=== PATIENT | male | born 1975 | race Caucasian/White ===

== ENCOUNTER 2020-09-21 16:20 | Emergency (ER) | payer MEDICAID, OTHER ==
[~2020-09-21] VITALS: Ht 175.3 cm; Wt 71.7 kg
[2020-09-21 16:42] VITALS: BP 122/69
--- NOTE | 2020-09-21 16:52 | NUR ---
PT AMBULATED TO BED 9.
[2020-09-21] MEDS ORDERED: LIDOCAINE/EPI 1% 1:100000 20 ML VIAL INJ ONE (17:00)
[2020-09-21] MEDS ORDERED: NACL 0.9% 1,000 ML IV ONE (17:00)
[2020-09-21] MEDS ORDERED: KETOROLAC 30 MG/ML VIAL IVP ONE (17:00)
--- NOTE | 2020-09-21 17:29 | NUR ---
LABS DRAWN, CONSENT CT OBTAINED
--- NOTE | 2020-09-21 17:36 | NUR ---
PT STATES HE HAS AN ALLERGY TO A STERIOD BUT UNSURE OF THE MEDICATION. IN TRAIGE, SHE OBTAINED THAT PT HAD AN ALLERGY TO ASPIRIN. PT WAS GIVEN TORODOL, PT DENIES SOB, HIVES, CHEST PAIN OR ANY SIGNS OF AN ALLERGIC REACTION.
[2020-09-21 17:38] LABS: BASOPHILS % (AUTO) 0.6 % (0.0-2.0); EOSINOPHILS # (AUTO) 0.3 K/uL (0-0.4); EOSINOPHILS % (AUTO) 5.9 % (0.0-4.0); HEMATOCRIT 42.9 % (36-52); HEMOGLOBIN 14.6 g/dL (12.0-18.0); LYMPHOCYTES % (AUTO) 38.4 % (20.5-51.1); MEAN CORPUSCULAR HEMOGLOBIN 32 pg (27-31); MEAN CORPUSCULAR HGB CONC 34 g/dL (33-37); MEAN CORPUSCULAR VOLUME 94.5 fL (80-94); MONOCYTES # (AUTO) 0.6 K/uL (0.8-1.0); NEUTROPHILS # (AUTO) 2.2 K/uL (1.8-7.7); NEUTROPHILS % (AUTO) 43.1 % (42.2-75.2); PLATELET COUNT (AUTO) 324 K/uL (140-450); RED BLOOD CELL COUNT(AUTO) 4.54 MIL/uL (4.20-6.10); RED CELL DISTRIBUTION WIDTH 13.1 % (11.6-13.7); WHITE BLOOD COUNT (AUTO) 5.1 K/uL (4.8-10.8)
[2020-09-21 17:53] LABS: ALBUMIN 3.7 g/dL (3.4-5.0); ANION GAP 10.7 (8-16); CARBON DIOXIDE 29.1 mmol/L (21-32); POTASSIUM 3.8 mmol/L (3.5-5.1); TOTAL BILIRUBIN 0.3 mg/dL (0.0-1.0)
--- NOTE | 2020-09-21 17:53 | NUR ---
45 Y/O M BIB SELF FROM HOME, PATIENT PRESENTS TO ED WITH BACK PAIN THAT STARTED IN NOVEMBER 2019 FROM A PREVIOUS FALL. PT HAS BEEN GETTING SHOTS IN HIS SPINE FOR PAIN RELIEF, ON 09/12/20 PT HAD PAIN SHOT, 09/15/20 PT SAW HE HAD SWELLING AND REDNESS. AREA ON LOWER BACK IS REDDENED, EDEMA PRESENT, AND WOUND IS OPEN, NO DISCHARGE. ALLERGY: ASPIRIN, ERYTHROMYCIN MED: CEPHALEXIN AND NORCO
--- NOTE | 2020-09-21 19:10 | NUR ---
Report received from ANISH Dover for continuation of care.
--- NOTE | 2020-09-21 19:16 | NUR ---
Pt sitting up in bed, locked and in lowest position, HOB elevated, side rail x1. VSS. No acute distress noted.
--- NOTE | 2020-09-21 19:20 | NUR ---
I&D kit placed at bedside for ERMD administration.
[2020-09-21 20:14] VITALS: BP 125/72
[2020-09-21] MEDS ORDERED: NAPR-54 PO (21:06)
[2020-09-21] MEDS ORDERED: SULF-59 PO (21:06)
--- NOTE | 2020-09-21 21:24 | NUR ---
COVERED PT'S WOUND WITH 6X6 BANDAGE AND PROVIDED WOUND CARE INSTRUCTIONS.
--- NOTE | 2020-09-21 21:25 | NUR ---
IV removed, catheter intact and site benign. Applied folded 4x4 gauze and tape to stop bleeding.
--- NOTE | 2020-09-21 21:28 | NUR ---
Patient discharged with v/s stable. Written and verbal after care instructions given and explained. Patient alert, oriented and verbalized understanding of instructions. Ambulatory with steady gait. All questions addressed prior to discharge. ID band removed. Patient advised to follow up with PMD. Rx of NAPROSYN AND BACTRIM given. Patient educated on indication of medication including possible reaction and side effects. Opportunity to ask questions provided and answered.
== END 2020-09-21 21:28 | disposition home or self-care (01) ==
LOC: MED 16:20
DX: L02.212 Cutaneous abscess of back [any part, except buttock and flank] (principal); J45.909 Unspecified asthma, uncomplicated; F17.210 Nicotine dependence, cigarettes, uncomplicated; Z88.1 Allergy status to other antibiotic agents; Z88.6 Allergy status to analgesic agent; Z71.6 Tobacco abuse counseling
CPT/HCPCS: 10060; 36415; 72193; 80053; 85025; 96361; 96374; 99285; J1885; J2001; J7030; Q9967

== ENCOUNTER 2021-01-14 08:33 | Emergency (ER) | payer MEDICAID, OTHER ==
[~2021-01-14] VITALS: Ht 175.3 cm; Wt 68.9 kg
[~2021-01-14 08:33] MED LIST: NAPR-54 PO; SULF-59 PO
[2021-01-14 08:43] VITALS: BP 122/72
--- NOTE | 2021-01-14 09:51 | NUR ---
45/M presents to ED with c/o of lower back pain. Patient states he suffers from chronic back pain and received an injection in lower back stating a "bump" produced after. Patient seen last week and given two Rx for antibiotics with no relief. Sore noted on left buttocks, redness and swelling with slight drainage noted. Patient states 10/10 pain worsening with ambulation and sitting on site. Reports last Tdap was 2 years ago.
--- NOTE | 2021-01-14 10:04 | NUR ---
Patient discharged with v/s stable. Written and verbal after care instructions given and explained. Patient verbalized understanding. Ambulatory with steady gait. All questions addressed prior to discharge. Advised to follow up with PMD.
== END 2021-01-14 10:04 | disposition home or self-care (01) ==
LOC: MED 08:33
DX: L03.312 Cellulitis of back [any part except buttock and flank] (principal); F17.290 Nicotine dependence, other tobacco product, uncomplicated; J44.9 Chronic obstructive pulmonary disease, unspecified; Z79.899 Other long term (current) drug therapy; Z88.1 Allergy status to other antibiotic agents; Z88.6 Allergy status to analgesic agent; Z98.890 Other specified postprocedural states; Z71.6 Tobacco abuse counseling
CPT/HCPCS: 99284

== ENCOUNTER 2021-04-13 09:24 | Emergency (ER) | payer MEDICAID, OTHER ==
[~2021-04-13] VITALS: Ht 175.3 cm; Wt 70.8 kg
[2021-04-13 09:37] VITALS: BP 124/79
--- NOTE | 2021-04-13 09:43 | NUR ---
[facility]: RIGHT EYE 20/15, LEFT EYE 20/15, BOTH EYES 20/10
--- NOTE | 2021-04-13 09:54 | NUR ---
46 Y/O MALE C/O LEFT EYE PAIN X 3 DAYS. PT STATES WOKE UP WITH SWELLING AND REDNESS. STATES BLURRY VISION TO LT EYE. BILAT PUPPIL 4MM, BRISK, PERRLA. REPORTS 8/10 SHARP PAIN. PMH: ASTHMA, COPD ALLERGY: ASPIRIN AND ERYTHROMYCIN
[2021-04-13] MEDS ORDERED: MUPI2CRE22 TP (10:12)
[2021-04-13 10:21] VITALS: BP 124/79
--- NOTE | 2021-04-13 10:21 | NUR ---
Patient discharged with v/s stable. Written and verbal after care instructions given and explained. Patient alert, oriented and verbalized understanding of instructions. Ambulatory with steady gait. All questions addressed prior to discharge. ID band removed. Patient advised to follow up with PMD. Rx of MUPIROCIN given. Patient educated on indication of medication including possible reaction and side effects. Opportunity to ask questions provided and answered.
== END 2021-04-13 10:21 | disposition home or self-care (01) ==
LOC: MED 09:24
DX: H01.001 Unspecified blepharitis right upper eyelid (principal); J44.9 Chronic obstructive pulmonary disease, unspecified; Z79.1 Long term (current) use of non-steroidal anti-inflammatories (NSAID); Z79.2 Long term (current) use of antibiotics; Z88.6 Allergy status to analgesic agent; Z88.1 Allergy status to other antibiotic agents
CPT/HCPCS: 99283

== ENCOUNTER 2021-04-27 16:11 | Emergency (ER) | payer OTHER ==
[~2021-04-27] VITALS: Ht 175.3 cm; Wt 70.8 kg
[~2021-04-27 16:11] MED LIST changes: +MUPI2CRE22 TP
[2021-04-27 16:30] VITALS: BP 130/76
[2021-04-27] MEDS ORDERED: ROBAC PO ×2 (17:11→19:06)
[2021-04-27] MEDS ORDERED: ALBU0.0912 IH ×2 (17:12→19:06)
[2021-04-27 17:34] VITALS: BP 130/76
--- NOTE | 2021-04-27 17:35 | NUR ---
Patient discharged with v/s stable. Written and verbal after care instructions given and explained. Patient alert, oriented and verbalized understanding of instructions. Ambulatory with steady gait. All questions addressed prior to discharge. ID band removed. Patient advised to follow up with PMD. Rx of ALBUTEROL SULFATE, CODEINE PHOSPHATE (SENT) given. Patient educated on indication of medication including possible reaction and side effects. Opportunity to ask questions provided and answered.
== END 2021-04-27 17:35 | disposition home or self-care (01) ==
LOC: MED 16:11
DX: J44.9 Chronic obstructive pulmonary disease, unspecified (principal); F17.200 Nicotine dependence, unspecified, uncomplicated; Z88.1 Allergy status to other antibiotic agents; Z88.6 Allergy status to analgesic agent; Z79.899 Other long term (current) drug therapy
CPT/HCPCS: 99283

== ENCOUNTER 2021-07-03 08:19 | Emergency (ER) | payer OTHER ==
[~2021-07-03] VITALS: Ht 175.3 cm; Wt 70.3 kg
[~2021-07-03 08:19] MED LIST changes: +ALBU0.0912 IH; +ROBAC PO
[2021-07-03 08:36] VITALS: BP 111/80
[2021-07-03 10:54] VITALS: BP 111/80
--- NOTE | 2021-07-03 11:05 | NUR ---
novel swab done. walked to lab.
== END 2021-07-03 10:54 | disposition home or self-care (01) ==
LOC: MED 08:19
DX: J06.9 Acute upper respiratory infection, unspecified (principal); Z20.822 Contact with and (suspected) exposure to COVID-19; J44.9 Chronic obstructive pulmonary disease, unspecified; F17.210 Nicotine dependence, cigarettes, uncomplicated; Z71.6 Tobacco abuse counseling; Z79.899 Other long term (current) drug therapy; Z88.1 Allergy status to other antibiotic agents; Z88.8 Allergy status to other drugs, medicaments and biological substances
CPT/HCPCS: 99283; U0003

== ENCOUNTER 2021-10-14 19:41 | Emergency (ER) | payer OTHER ==
[~2021-10-14] VITALS: Ht 177.8 cm; Wt 70.8 kg
[2021-10-14 20:23] VITALS: BP 119/73
--- NOTE | 2021-10-14 23:39 | NUR ---
PATIENT LEFT WITHOUT BEING SEEN BY DR. Dowell. NO FURTHER CARE PROVIDED FOR PATIENT.
== END 2021-10-14 23:39 | disposition left against medical advice (07) ==
LOC: MED 19:41
DX: M54.9 Dorsalgia, unspecified (principal); Z53.21 Procedure and treatment not carried out due to patient leaving prior to being seen by health care provider